=== PATIENT | male | born 1995 | race Hispanic/Latino ===

== ENCOUNTER 2020-11-11 00:28 | Emergency (ER) | payer BC, OTHER, SELFPAY ==
[2020-11-11] MEDS ORDERED: KETOROLAC 30 MG/ML INJ ONE (02:52)
--- NOTE | 2020-11-11 03:33 | ER ---
Nurse's Notes [facility] Name: Shay King Age: 25 yrs Sex: Male : 1995 Arrival Date: 11/11/2020 Time: 00:47 Bed 25 Private MD: Diagnosis: Sprain of other specified parts of right knee Presentation: 11/11 01:20 Chief complaint: Patient states: was skateboarding, fell, landed on his right maria at iw an unusual angle , feels like something is moving in his right maria. Care prior to arrival: None. Mechanism of Injury: Fall. Trauma event details: Injury occurred in the [facility]. 01:20 Acuity: LUCÍA 3 iw 01:20 Method Of Arrival: Wheelchair iw 01:21 Coronavirus screen: At this time, the client does not indicate any symptoms associated iw with coronavirus-19. Ebola Screen: Patient negative for fever greater than or equal to 101.5 degrees Fahrenheit, and additional compatible Ebola Virus Disease symptoms Patient denies exposure to infectious person. Patient denies travel to an Ebola-affected area in the 21 days before illness onset. No symptoms or risks identified at this time. Initial Sepsis Screen: Does the patient meet any 2 criteria? No. Patient's initial sepsis screen is negative. Does the patient have a suspected source of infection? No. Patient's initial sepsis screen is negative. Risk Assessment: Do you want to hurt yourself or someone else? Patient reports no desire to harm self or others. Onset of symptoms was November 11, 2020. Trauma Activation: Not Applicable Physician: ED Physician; Name: ; Notified At: ; Arrived At: Physician: General Surgeon; Name: ; Notified At: ; Arrived At: Physician: Radiology; Name: ; Notified At: ; Arrived At: Physician: Respiratory; Name: ; Notified At: ; Arrived At: Physician: Lab; Name: ; Notified At: ; Arrived At: Historical: - Allergies: : No Known Allergies; iw - Home Meds: 01:22 None [Active]; iw - PMHx: 01:22 None; iw - PSHx: 01:22 None; iw - Immunization history:: Adult Immunizations Last tetanus immunization: unknown. - Social history:: Smoking status: Patient reports the use of cigarette tobacco products, denies chronic smoking, but will smoke occasionally. - Family history:: not pertinent. Screenin:55 Abuse screen: Denies threats or abuse. Denies injuries from another. Nutritional iw screening: No deficits noted. Tuberculosis screening: No symptoms or risk factors identified. Fall Risk None identified. Assessment: 01:55 General: Appears in no apparent distress. Behavior is calm, cooperative. Pain: iw Complains of pain in right knee and right maria. Neuro: Level of Consciousness is awake, alert, obeys commands, Oriented to person, place, time, situation, Moves all extremities. Cardiovascular: Patient's skin is warm and dry. Respiratory: Respiratory effort is even, unlabored, Respiratory pattern is regular. GI: No signs and/or symptoms were reported involving the gastrointestinal system. Derm: Musculoskeletal: Range of motion: limited in right knee. Injury Description: Abrasion sustained to right maria. Vital Signs: 01:21 BP 132 / 74; Pulse 72; Resp 16; Temp 98.6; Pulse Ox 98% on R/A; Weight 113.4 kg; Height iw 5 ft. 7 in. (170.18 cm); Pain 8/10; 01:21 Body Mass Index 39.16 (113.40 kg, 170.18 cm) iw ED Course: 00:47 Patient arrived in ED. am4 01:21 Triage completed. iw 01:22 Arm band placed on. iw 01:24 Jody Johnson, RN is Primary Nurse. iw 01:25 Miah Mishra MD is Attending Physician. ma2 01:55 Patient has correct armband on for positive identification. iw 03:41 Tib Fib Right XRAY In Process Unspecified. EDMS 03:42 Knee Right 3 View XRAY In Process Unspecified. EDMS 03:48 No provider procedures requiring assistance completed. Patient did not have IV access iw during this emergency room visit. Administered Medications: 02:37 Drug: TORadol (ketorolac) 60 mg Route: IM; Site: left deltoid; iw 03:47 Follow up: Response: No adverse reaction iw Outcome: 03:32 Discharge ordered by . ma2 03:47 Discharged to home via wheelchair, with friend. iw 03:47 Condition: good 03:47 Discharge instructions given to patient, Instructed on discharge instructions, follow up and referral plans. medication usage, Demonstrated understanding of instructions, follow-up care, medications, Prescriptions given X 1. 03:48 Patient left the ED. iw Signatures: Dispatcher [employer] Jody Rodriguez RN RN iw Alzahri, Mohammad, MD MD ma2 Beata Chambers
--- NOTE | 2020-11-11 03:33 | EDPHYS ---
Physician Documentation [facility] Name: Shay King Age: 25 yrs Sex: Male : 1995 Arrival Date: 11/11/2020 Time: 00:47 Bed 25 Private MD: ED Physician Miah Mishra HPI: 11/11 02:14 This 25 yrs old Male presents to ER via Wheelchair with complaints of Fall ma2 Injury. 02:14 Details of fall: The patient fell from an upright position. Onset: The symptoms/episode ma2 began/occurred suddenly, 3 hour(s) ago. Associated injuries: The patient sustained right leg. Severity of symptoms: At their worst the symptoms were mild, in the emergency department the symptoms are unchanged. The patient has experienced a previous episode. Historical: - Allergies: 01:22 No Known Allergies; iw - Home Meds: :22 None [Active]; iw - PMHx: :22 None; iw - PSHx: 01:22 None; iw - Immunization history:: Adult Immunizations Last tetanus immunization: unknown. - Social history:: Smoking status: Patient reports the use of cigarette tobacco products, denies chronic smoking, but will smoke occasionally. - Family history:: not pertinent. ROS: 02:14 Constitutional: Negative for fever, chills, and weight loss. ma2 02:14 All other systems are negative. Exam: 02:14 Constitutional: This is a well developed, well nourished patient who is awake, alert, ma2 and in no acute distress. Chest/axilla: Normal chest wall appearance and motion. Nontender with no deformity. No lesions are appreciated. Cardiovascular: Regular rate and rhythm with a normal S1 and S2. No gallops, murmurs, or rubs. Normal PMI, no JVD. No pulse deficits. Respiratory: Lungs have equal breath sounds bilaterally, clear to auscultation and percussion. No rales, rhonchi or wheezes noted. No increased work of breathing, no retractions or nasal flaring. Abdomen/GI: Soft, non-tender, with normal bowel sounds. No distension or tympany. No guarding or rebound. No evidence of tenderness throughout. Back: No spinal tenderness. No costovertebral tenderness. Full range of motion. MS/ Extremity: right upper leg abrasion, and ttp, Pulses equal, no cyanosis. Neurovascular intact. Full, normal range of motion. Neuro: Awake and alert, GCS 15, oriented to person, place, time, and situation. Cranial nerves II-XII grossly intact. Motor strength 5/5 in all extremities. Sensory grossly intact. Cerebellar exam normal. Normal gait. Vital Signs: 01:21 BP 132 / 74; Pulse 72; Resp 16; Temp 98.6; Pulse Ox 98% on R/A; Weight 113.4 kg; Height iw 5 ft. 7 in. (170.18 cm); Pain 8/10; 01:21 Body Mass Index 39.16 (113.40 kg, 170.18 cm) iw MDM: 01:25 Patient medically screened. sd2 02:14 Differential diagnosis: abrasion, fracture, sprain, strain. [facility] 03:32 Data reviewed: vital signs, nurses notes. Counseling: I had a detailed discussion with [facility] the patient and/or guardian regarding: the historical points, exam findings, and any diagnostic results supporting the discharge/admit diagnosis, the presence of at least one elevated blood pressure reading (>120/80) during this emergency department visit, the need for outpatient follow up. Response to treatment: the patient's symptoms have markedly improved after treatment. 11/11 01:36 Order name: Tib Fib Right XRAY [facility] 11/11 01:36 Order name: Knee Right 3 View XRAY [facility] 11/11 03:32 Order name: Knee Immobilizer; Complete Time: 03:47 [facility] Administered Medications: 02:37 Drug: TORadol (ketorolac) 60 mg Route: IM; Site: left deltoid; iw 03:47 Follow up: Response: No adverse reaction iw Disposition: 11/11/20 03:32 Discharged to Home. Impression: Sprain of other specified parts of right knee. - Condition is Stable. - Discharge Instructions: RICE for Routine Care of Injuries, [id number], Knee Sprain, [id number]. - Prescriptions for Diclofenac Sodium 75 mg Oral Tablet Sustained Release - take 1 tablet by ORAL route 2 times per day; 30 tablet. - Work release form, Medication Reconciliation Form, Thank You Letter, Antibiotic Education, Prescription Opioid Use form. - Follow up: Private Physician; When: Tomorrow; Reason: Continuance of care. - Notes: see pcp for MRI Signatures: Dispatcher [employer] Jody Rodriguez RN RN Miah Tan MD MD ma2 Corrections: (The following items were deleted from the chart) 03:47 03:32 Crutches ordered. ma2 iw 03:48 03:32 11/11/2020 03:32 Discharged to Home. Impression: Sprain of other specified parts iw of right knee. Condition is Stable. Prescriptions for Diclofenac Sodium 75 mg Oral Tablet Sustained Release - take 1 tablet by ORAL route 2 times per day; 30 tablet. and Forms are Medication Reconciliation Form, Thank You Letter, Antibiotic Education, Prescription Opioid Use. Follow up: Private Physician; When: Tomorrow; Reason: Continuance of care. ma2
[2020-11-11 03:52] VITALS: BP 132/74; TEMP 98.6; O2SAT 98
--- NOTE | 2020-11-11 09:04 | RAD REPORT ---
EXAM DESCRIPTION: RAD - Tib Fib Right - 11/11/2020 3:41 am CLINICAL HISTORY: PAIN COMPARISON: None FINDINGS: Right knee and right tibia/ fibula- multiple projections Fracture involving the lateral tibial plateau is seen. Fracture also involves fibular head. Moderate suprapatellar joint effusion.
--- NOTE | 2020-11-11 10:19 | RAD REPORT ---
EXAM DESCRIPTION: RAD - Knee Right 3 View - 11/11/2020 3:42 am CLINICAL HISTORY: PAIN COMPARISON: None FINDINGS: Right knee and right tibia/ fibula- multiple projections Fracture involving the lateral tibial plateau is seen. Fracture also involves fibular head. Moderate suprapatellar joint effusion.
== END 2020-11-11 03:48 | disposition home or self-care (01) ==
LOC: ER 00:28
DX: S83.8X1A Sprain of other specified parts of right knee, initial encounter (principal); W19.XXXA Unspecified fall, initial encounter; F17.210 Nicotine dependence, cigarettes, uncomplicated
CPT/HCPCS: 96372; 99283